=== PATIENT | female | born 1970 | race African-American/Black ===

== ENCOUNTER 2016-06-12 09:26 | Inpatient (IN) | payer BC ==
[2016-06-12 09:40] LABS: Basophils % (Auto) 0.3 % (0.0-1.8); Eosinophils % (Auto) 0.3 % (0.0-4.3); Hematocrit 39.7 % (30.3-42.9); Hemoglobin 13.6 gm/dl (10.1-14.3); Mean Corpuscular HGB Conc 34 % (30-34); Mean Corpuscular Hemoglobin 32 pg (28-32); Mean Corpuscular Volume 93 fl (79-97); Platelet Count 282 K/mm3 (140-440); Red Blood Count 4.28 M/mm3 (3.65-5.03); Red Cell Distribution Width 13.4 % (13.2-15.2); White Blood Count 9.4 K/mm3 (4.5-11.0)
[2016-06-12 09:47] LABS: Anion Gap 17 mmol/L; BUN/Creatinine Ratio 28.33; Blood Urea Nitrogen 17 mg/dL (7-17); Carbon Dioxide 25 mmol/L (22-30); Chloride 97.3 mmol/L (98-107); Glucose 174 mg/dL (65-100); INR 0.93 (0.87-1.13); Potassium 3.4 mmol/L (3.6-5.0); Sodium 136 mmol/L (137-145)
[2016-06-12] MEDS ORDERED: ASPIRIN PO ONE (10:31)
--- NOTE | 2016-06-12 10:36 | Emergency Department Report ---
HPI - General Chief Complaint: Neuro Symptoms/Deficit Time Seen by Provider: 06/12/16 10:19 - HPI HPI: Room 1 The patient is a 45-year-old male presenting with chief complaint of right- sided weakness. The patient's last known well time was 19:00 last night when she went to bed. The patient awakened this morning at 03:00 with weakness of her right upper and right lower extremity. The patient states that approximately 07:00 she noticed difficulty speaking secondary to her tongue feeling "funny." Patient denies headache. Patient denies any previous episodes of same Location: Right upper extremity, right lower extremities weakness Duration: Awakened at 03:00 with symptoms Quality: Weakness Severity: Moderate Modifying factors: Unknown Context: [see above] Mode of transportation: [not driving] ED Past Medical Hx - Past Medical History Hx Hypertension: Yes Additional medical history: heart trouble? - Surgical History Past Surgical History?: No Additional Surgical History: eye surgery - Family History Family history: no significant - Social History Smoking Status: Never Smoker Substance Use Type: None - Medications Home Medications: Home Medications Medication Instructions Recorded Confirmed Last Taken Type No Known Home Medications [No 06/12/16 06/12/16 Unknown History Reported Home Medications] ED Review of Systems ROS: Stated complaint: POSS STROKE Other details as noted in HPI Comment: All other systems reviewed and negative Constitutional: denies: chills, fever Eyes: denies: eye pain, eye discharge, vision change ENT: other (tongue feels funny) Respiratory: denies: cough, shortness of breath, wheezing Cardiovascular: denies: chest pain, palpitations Endocrine: no symptoms reported Gastrointestinal: nausea Genitourinary: denies: urgency, dysuria, discharge Musculoskeletal: denies: back pain, joint swelling, arthralgia Skin: denies: rash, lesions Neurological: weakness. denies: numbness Psychiatric: denies: anxiety, depression Hematological/Lymphatic: denies: easy bleeding, easy bruising Physical Exam - Physical Exam Vital Signs: Vital Signs 06/12/16 06/12/16 09:55 10:00 Temperature 98.1 F Pulse Rate 68 Respiratory 18 Rate Blood Pressure 208/93 O2 Sat by Pulse 100 99 Oximetry Physical Exam: GENERAL: The patient is well-developed well-nourished female lying on stretcher not appearing to be in acute distress. [] HEENT: Normocephalic. Atraumatic. Extraocular motions are intact. Patient has moist mucous membranes. No nystagmus noted NECK: Supple. Trachea midline CHEST/LUNGS: Clear to auscultation. There is no respiratory distress noted. HEART/CARDIOVASCULAR: Regular. There is no tachycardia. There is no gallop rub or murmur. ABDOMEN: Abdomen is soft, nontender. Patient has normal bowel sounds. There is no abdominal distention. SKIN: There is no rash. There is no edema. There is no diaphoresis. NEURO: The patient is awake, alert, and oriented. The patient is cooperative. Cranial nerves II through XII grossly intact with exception of cranial nerve XI on the right. The patient has normal speech. 3+/5 caser shoe parts on the right, 5+/5 caser shoe parts left. Patient is not able to fully raise right upper extremity. Positive right pronator drift. Patient exhibits difficulty flexing right lower extremity at the hip and the knee when compared to the left. NIHSS= 4 MUSCULOSKELETAL: There is no evidence of acute injury. ED Course Vital Signs 06/12/16 06/12/16 09:55 10:00 Temperature 98.1 F Pulse Rate 68 Respiratory 18 Rate Blood Pressure 208/93 O2 Sat by Pulse 100 99 Oximetry ED Medical Decision Making - Lab Data Result diagrams: 06/12/16 09:28 06/12/16 09:28 Laboratory Tests 06/12/16 06/12/16 06/12/16 09:28 09:28 09:28 WBC 9.4 RBC 4.28 Hgb 13.6 Hct 39.7 MCV 93 MCH 32 MCHC 34 RDW 13.4 Plt Count 282 Lymph % (Auto) 18.9 Callahan % (Auto) 2.2 Eos % (Auto) 0.3 Baso % (Auto) 0.3 Lymph # 1.8 Callahan # 0.2 Eos # 0.0 Baso # 0.0 Seg Neutrophils % 78.3 H Seg Neutrophils # 7.4 PT 12.4 INR 0.93 APTT 26.0 Thrombin Time Sodium 136 L Potassium 3.4 L Chloride 97.3 L Carbon Dioxide 25 Anion Gap 17 BUN 17 Creatinine 0.6 L Estimated GFR > 60 BUN/Creatinine Ratio 28.33 Glucose 174 H Calcium 9.0 Troponin T < 0.010 06/12/16 09:28 WBC RBC Hgb Hct MCV MCH MCHC RDW Plt Count Lymph % (Auto) Callahan % (Auto) Eos % (Auto) Baso % (Auto) Lymph # Callahan # Eos # Baso # Seg Neutrophils % Seg Neutrophils # PT INR APTT Thrombin Time 15.4 Sodium Potassium Chloride Carbon Dioxide Anion Gap BUN Creatinine Estimated GFR BUN/Creatinine Ratio Glucose Calcium Troponin T - EKG Data -: EKG Interpreted by Me EKG shows normal: sinus rhythm Rate: normal - EKG Data When compared to previous EKG there are: previous EKG unavailable Interpretation: other (biphasic T waves in leads V5, V6) - Radiology Data Radiology results: report reviewed (CT head), image reviewed (CT head) CT head (discussed with teleneurologist/verbal report called by radiologist)- no acute hemorrhage. Questionable lacunar infarct - Differential Diagnosis CVA, TIA, ICH Critical care attestation.: If time is entered above; I have spent that time in minutes in the direct care of this critically ill patient, excluding procedure time. ED Disposition Clinical Impression: CVA (cerebral vascular accident) Disposition: OP ADMITTED IP TO THIS HOSP Is pt being admited?: Yes Does the pt Need Aspirin: Yes Condition: Serious Time of Disposition: 10:39 (hospitalist paged)
[2016-06-12] MEDS ORDERED: SODIUM CHLORIDE FLUSH SYRINGE 10 ML IV PRN (11:00)
--- NOTE | 2016-06-12 11:02 | Cat Scan Report ---
CT HEAD WITHOUT CONTRAST HISTORY: CVA. TECHNIQUE: Sequential noncontrast CT images. FINDINGS: No comparison. There is no evidence for hemorrhage, mass, extra-axial fluid collection or hydrocephalus. A 1 cm hypodensity is noted in the left anterior basal ganglia on image 28. This has the appearance of a focal chronic ischemic insult. The remainder of the brain parenchyma has normal attenuation. Normal lynn-white interface. The posterior fossa and contents are unremarkable. The calvarium, visualized sinuses and mastoid air cells are within normal limits. IMPRESSION: No acute intracranial process is appreciated. Questionable low 1 cm hypodensity in the left anterior basal ganglia which appears chronic in my opinion. Please correlate with the patient's clinical presentation. These findings were discussed with Dr. Segundo in the emergency department at 0941 hours
[2016-06-12 11:35] LABS: INR 0.97 (0.87-1.13)
--- NOTE | 2016-06-12 12:05 | Admit Criteria Form ---
Admission Criteria Documentation: STROKE: ISCHEMIC Clinical Indications for Admission to Inpatient Care (Place 'X' for any and all applicable criteria): Admission is indicated for ANY ONE of the following(1)(2)(3)(4): [ X]I. Acute stroke Extended stay beyond goal length of stay may be needed for(1)(2) [ ]a) Major deficit or clinical deterioration [ ]b) Hospital-acquired infection (eg, urinary tract infection, pneumonia) [ ]c) Embolic cause of stroke [ ]d) Venous thromboembolism(9) [ ]e) Seizures [ ]f) Bleeding (eg, cerebral) [ ]g) Increased intracranial pressure [ ]h) Comorbidities [ ]i) Surgical intervention The original [email or web address] content created by [employer] has been revised. The portions of the content which have been revised are identified through the use of italic text or in bold, and [facility] has neither reviewed nor approved the modified material. All other unmodified content is copyright [facility]. Please see references footnoted in the original [facility] edition 2016 Admission Criteria Met: Yes
--- NOTE | 2016-06-12 14:22 | Magnetic Resonance Report ---
MRI OF THE BRAIN WITHOUT CONTRAST: HISTORY: CVA PROCEDURE: Multiplanar, multisequence MR imaging of the brain without IV contrast was performed. FINDINGS: A 1.1 cm focus of diffusion restriction is identified in the left rohit on diffusion image 13. No additional areas of diffusion restriction. No evidence for hemorrhage or mass. No extra axial fluid collection. Chronic lacunar infarct measuring 1 cm is noted in the left basal ganglia. No additional chronic infarct. The midline structures are central. The basal cisterns are patent. Normal ventricular size. The orbital cavities and sella turcica demonstrate no abnormality. The visualized paranasal sinuses and mastoid air cells are well aerated. IMPRESSION: 1.1 cm acute to subacute lacunar infarct in the left rohit. No evidence for hemorrhage.
--- NOTE | 2016-06-12 14:26 | Magnetic Resonance Report ---
MRA HEAD WITHOUT CONTRAST HISTORY: CVA. [id number] imaging with MIP reformations of the [place] of [place] is submitted. The anterior and posterior circulations are patent. There appears to be moderate irregularity or atherosclerotic disease involving the proximal bilateral anterior and middle cerebral arteries. The left MCA is most affected. No large vessel occlusion or aneurysm is identified. This appears advanced for this patient's age. Small bilateral posterior communicating arteries are noted. The vertebral arteries and basilar artery are widely patent. IMPRESSION: No large vessel occlusion or aneurysm. Moderate atherosclerotic disease for this patient's age.
[2016-06-12] MEDS: LOVENOX SUB-Q SCH (15:00)
[2016-06-12] MEDS: ASPIRIN PO SCH (16:11)
[2016-06-12] MEDS ORDERED: ZESTRIL ONE (16:15)
[2016-06-12] MEDS: ZESTRIL PO SCH ×3 (16:21→21:15)
[2016-06-12] MEDS ORDERED: PNEUMOVAX 23 IM ONE (17:13)
[2016-06-12] MEDS ORDERED: FLUARIX QUAD 2016-2017(36 MOS+) IM ONE (17:13)
--- NOTE | 2016-06-12 18:43 | Echocardiography Report ---
Transthoracic Echocardiogram Indication: Stroke BP: 208/93 Findings Left Ventricle: The left ventricular chamber size is normal. Mild to moderate concentric left ventricular hypertrophy is observed. Global left ventricular systolic function is at the lower limits of normal. The estimated ejection fraction is 45-50%. Abnormal left ventricular diastolic filling is observed, consistent with impaired relaxation. Left Atrium: The left atrial chamber size is normal. Right Ventricle: The right ventricular cavity size is normal. The right ventricular global systolic function is normal. Right Atrium: The right atrial cavity size is normal. The interatrial septum appears normal. Aortic Valve: The aortic valve is trileaflet. The aortic valve leaflets are mildly thickened. Mild aortic leaflet calcification is visualized. There is mild aortic regurgitation. There is no evidence of aortic stenosis. Mitral Valve: The mitral valve leaflets are mildly thickened. There is mild mitral regurgitation. There is no evidence of mitral stenosis. Tricuspid Valve: The tricuspid valve leaflets are normal. There is mild tricuspid regurgitation. The right ventricular systolic pressure is calculated at 27 mmHg. There is evidence of borderline pulmonary hypertension. There is no tricuspid stenosis. Pulmonic Valve: The pulmonic valve appears normal. There is trace pulmonic regurgitation. There is no pulmonic stenosis. Pericardium: There is no pericardial effusion. Aorta: There is no dilatation of the ascending aorta. There is no dilatation of the aortic root. Venous: The inferior vena cava appears normal in size. Contrast: Intravenous agitated saline contrast was used to assess intracardiac shunting. Measurements Chambers MM Name Value Normal Range Ao root diameter (MM) 3 cm (2 - 3.7) LA dimension (AP) MM 3.7 cm (1.9 - 4) LA:Ao ratio (MM) 1.23 ratio - AV cusp separation (MM) 1.6 cm (1.5 - 2.6) Chambers 2D Name Value Normal Range RVIDd (AP) 2D 3.08 cm (0.9 - 2.6) IVSd (2D) 1.21 cm (0.6 - 1.1) LVPWd (2D) 1.21 cm (0.6 - 1.1) IVS:LVPW ratio (2D) 1 ratio - LVIDd (2D) 4.84 cm (3.7 - 5.6) LVIDs (2D) 3.33 cm (2 - 3.8) LV FS (Teichholz) (2D) 31.2 % - LV FS (cube) (2D) 31.2 % - LA dimension (AP) 2D 3.6 cm (1.9 - 4) Volumes/Mass Name Value Normal Range LA ESV SP 4CH (MOD) 35 ml - LA ESV SP 2CH (MOD) 35 ml - LA ESV BP (MOD) 36 ml - LA ESV BP (MOD) index 21.4 ml/m2 - Diastolic/Systolic Function Name Value Normal Range MV E-wave Vmax 0.65 m/sec - MV deceleration time 250 msec - MV A-wave Vmax 1.08 m/sec - MV E:A ratio 0.6 ratio - LV septal e' Vmax 0.05 m/sec - LV lateral e' Vmax 0.07 m/sec - LV E:e' septal ratio 13.1 ratio - LV E:e' lateral ratio 9.7 ratio - Aortic Valve Name Value Normal Range AV VTI 41.9 cm - AV mean gradient 9 mmHg - LVOT diameter 2.1 cm - LVOT VTI 25.6 cm - LVOT mean gradient 4 mmHg - SV LVOT 89 ml - JAYNE (continuity VTI) 2.11 cm2 - Mitral Valve Name Value Normal Range MV PHT 49 msec - MR Vmax 4.78 m/sec - MVA (PHT) 4.49 cm2 - Tricuspid Valve Name Value Normal Range TR Vmax 2.47 m/sec - TR peak gradient 24 mmHg - RAP 3 mmHg - RVSP 27 mmHg - Pulmonic Valve/Qp:Qs Name Value Normal Range PV Vmax 1.08 m/sec - PV peak gradient 5 mmHg - CA end-diastolic Vmax 0.98 m/sec - PV acceleration time 130 msec -
--- NOTE | 2016-06-12 20:42 | History and Physical Report ---
History of Present Illness Date of examination: 06/12/16 Date of admission: 06/12/16 11:05 Chief complaint: Weakness right upper and lower extremities one day duration History of present illness: Patient is a 45-year-old lady who speaks very little Tristanian went to bed in her normal state of health about 10 pm last night. Woke up this morning at about 6 AM to find that she is unable to raise right arm or right leg. Also noticed a slurred speech. EMS was called in. Patient was brought to the emergency department. Blood pressure was found to be severely elevated. The patient had a slow speech and obvious right hemiparesis. CT scan of the brain was unremarkable. MRI MRA was ordered. Admission was requested. Past History Past Medical History: hypertension Medications and Allergies Allergies Allergy/AdvReac Type Severity Reaction Status Date / Time No Known Allergies Allergy Unverified 06/12/16 09:32 Home Medications Medication Instructions Recorded Confirmed Last Taken Type No Known Home Medications [No 06/12/16 06/12/16 Unknown History Reported Home Medications] Active Meds: Active Medications Aspirin (Aspirin) 325 mg PO QDAY [facility] Last Admin: 06/12/16 16:11 Dose: Not Given Enoxaparin Sodium (Lovenox) 40 mg SUB-Q QDAY [facility] Last Admin: 06/12/16 15:00 Dose: Not Given Sodium Chloride (Nacl 0.9% 1000 Ml) 1,000 mls @ 100 mls/hr IV DIRECT [facility] Lisinopril (Zestril) 40 mg PO QDAY [facility] Last Admin: 06/12/16 17:16 Dose: Not Given Simvastatin (Zocor) 20 mg PO QHS [facility] Sodium Chloride (Sodium Chloride Flush Syringe 10 Ml) 10 ml IV PRN PRN PRN Reason: LINE FLUSH Review of system Constitutional: Well Nouridhed and Well developed. Head: NC/ AT Eyes: Denies any visual impairments. No discharge from the eyes Nose: Denies any rhinorrhea or epistaxis Throats: Denies any post nasal drainage. Ears: Denies any hearing deficits Cardiovascular system: Denies any chest pain, shortness of breath, orthopnea, paroxysmal nocturnal dyspnea, or palpitation. Respiratory system: Denies any cough, difficulty breathing, wheezing, pleuritic chest pain, Gastrointestinal system: Denies any abdominal pain, nausea vomiting, hematemesis or melena. Neurological system: Denies any headache, has slurred speech, facial droop, right lateralizing weakness Genitalia system: Denies any dysuria, urinary frequency or urgency, urethral discharge Skin: No rashes, hyperpigmented spots. Hematological: Denies any cervical tenderness hemorrhages or petechia. Immunological: Denies any multiple septic spots, Lymphatic: Denies any generalized lymphadenopathy. Endocrine: Denies any polyuria, polydipsia, polyphagia. No heat or cold intolerance. Exam - Constitutional Vitals: Temp Pulse Resp BP Pulse Ox 98.4 F 64 18 188/91 98 06/12/16 17:46 06/12/16 17:46 06/12/16 17:46 06/12/16 17:46 06/12/16 12:00 General appearance: Present: no acute distress, well-nourished - EENT Eyes: Present: PERRL ENT: hearing intact, clear oral mucosa - Neck Neck: Present: supple, normal ROM - Respiratory Respiratory effort: normal Respiratory: bilateral: CTA - Cardiovascular Heart Sounds: Present: S1 & S2. Absent: rub, click - Extremities Extremities: pulses symmetrical, No edema Peripheral Pulses: within normal limits - Abdominal General gastrointestinal: Present: soft, non-tender, non-distended, normal bowel sounds Female genitourinary: Present: normal - Integumentary Integumentary: Present: clear, warm, dry - Musculoskeletal Musculoskeletal: gait normal, strength equal bilaterally - Psychiatric Psychiatric: appropriate mood/affect, intact judgment & insight - Neurologic Neurologic: CNII-XII intact, focal deficits (strengths the right upper extremity 2-3/5, right lower extremity 3-4/5. ) Results - Labs CBC & Chem 7: 06/12/16 09:28 06/12/16 09:28 Assessment and Plan Assessment 1. Acute ischemic stroke 2. Accelerated hypertension 3. Hyperglycemia 4. Obesity Plan Patient admitted to telemetry. Aspirin 325 daily was given and Lovenox 40 mg subcutaneous commenced. Neuro check every 2 hours, echocardiogram, MRI MRA of the brain and neck. Simvastatin 20 mg daily, PT OT ST for evaluation and treatment DVT prophylaxis patient already on Lovenox and GI prophylaxis with Pepcid Spent 30 minutes in bed in patient's care, review of laboratory and radiological data, explanation of management plan to the patient and family members in the room.
[2016-06-12] MEDS: NOVOLOG SUB-Q SCH (22:17)
[2016-06-12] MEDS ORDERED: D50W (25GM) IV PRN (23:53)
[2016-06-13] MEDS: ZOCOR PO SCH ×2 (04:15→21:57)
[2016-06-13] MEDS: NOVOLOG SUB-Q SCH ×6 (04:18→22:00)
[2016-06-13] MEDS: ASPIRIN PO SCH (11:00)
[2016-06-13] MEDS: ZESTRIL PO SCH (11:00)
[2016-06-13] MEDS: K-DUR PO SCH (11:00)
[2016-06-13] MEDS: LOVENOX SUB-Q SCH (11:00)
--- NOTE | 2016-06-13 14:39 | Vascular Lab Report ---
CAROTID DUPLEX STUDY: RIGHT PSVEDV CCA PROX:788 CCA DIST:6014 ICA PROX:4011 ICA MID:7323 ICA DIST:9326 ECA: 123 VERT: 41 11 LEFT PSVEDV CCA PROX:599 CCA DIST:7114 ICA PROX:3810 ICA MID:7828 ICA DIST:8126 ECA: 112 VERT: 37 12 REASON FOR EXAM: Stroke. COMMENTS ON THE RIGHT: Doppler frequency analysis is consistent with 16 to 49 percent diameter reduction of the internal carotid artery. Minimal amount of plaque is seen. The common carotid artery is patent. The external carotid artery is patent. The vertebral artery has antegrade flow. COMMENTS ON THE LEFT: Doppler frequency analysis is consistent with 16 to 49 percent diameter reduction of the internal carotid artery. Minimal amount of plaque is seen. The common carotid artery is patent. The external carotid artery is patent. The vertebral artery has antegrade flow. Bilateral internal carotid tortuosity is noted. IMPRESSION: Less than 50% diameter reduction in the internal carotid arteries bilaterally. Consider repeat carotid artery duplex in 12 months.
--- NOTE | 2016-06-13 14:54 | Progress Note ---
Assessment and Plan Assessment and plan: 1. Acute lacunar infarct in the Left rohit with RT UR monoplegia / slurred speech - will f/u speech/ PT/ OT; cotn; cotn ASA; statin 2. Accelerated hypertension- allow permissive HTN for another 24 hrs then control;; prn antihypertensive for SBP >/= 160 3. MIld Hyperglycemia-will check Hb A1C; monitor accucheck 4.DVT prophylaxis-lovenox History Interval history: f/u CVA patient seen at the bedside; daughter present; speech is getting better; weakness in the Rt UE Hospitalist Physical - Constitutional Vitals: Temp Pulse Resp BP Pulse Ox 97.9 F 62 18 176/96 98 06/13/16 13:25 06/13/16 13:25 06/13/16 13:25 06/13/16 13:25 06/13/16 13:25 General appearance: Present: no acute distress, well-nourished - EENT Eyes: Present: PERRL, EOM intact. Absent: scleral icterus, conjunctival injection ENT: hearing intact, clear oral mucosa, no oropharyngeal erythema, no poor dentition - Neck Neck: Present: supple, normal ROM. Absent: enlarged thyroid, masses or JVD - Respiratory Respiratory effort: normal Respiratory: bilateral: diminished, negative: rales, rhonchi, wheezing - Cardiovascular Rhythm: regular Heart Sounds: Present: S1 & S2. Absent: gallop - Extremities Extremities: no ischemia, pulses intact, pulses symmetrical, No edema, normal temperature Peripheral Pulses: within normal limits - Abdominal General gastrointestinal: soft, non-tender, non-distended, normal bowel sounds - Integumentary Integumentary: Present: clear - Psychiatric Psychiatric: appropriate mood/affect, intact judgment & insight, cooperative - Neurologic Neurologic: focal deficits (RT UE weakness; power 3 ), other (slurred speech) Results - Labs CBC & Chem 7: 06/12/16 09:28 06/12/16 09:28 Labs: Laboratory Last Values WBC 9.4 K/mm3 (4.5-11.0) 06/12/16 09:28 RBC 4.28 M/mm3 (3.65-5.03) 06/12/16 09:28 Hgb 13.6 gm/dl (10.1-14.3) 06/12/16 09:28 Hct 39.7 % (30.3-42.9) 06/12/16 09:28 MCV 93 fl (79-97) 06/12/16 09: MCH 32 pg (28-32) 06/12/16 09:28 MCHC 34 % (30-34) 06/12/16 09:28 RDW 13.4 % (13.2-15.2) 06/12/16 09:28 Plt Count 282 K/mm3 (140-440) 06/12/16 09:28 Lymph % (Auto) 18.9 % (13.4-35.0) 06/12/16 09:28 Cocke % (Auto) 2.2 % (0.0-7.3) 06/12/16 09:28 Eos % (Auto) 0.3 % (0.0-4.3) 06/12/16 09:28 Baso % (Auto) 0.3 % (0.0-1.8) 06/12/16 09:28 Lymph # 1.8 K/mm3 (1.2-5.4) 06/12/16 09:28 Cocke # 0.2 K/mm3 (0.0-0.8) 06/12/16 09:28 Eos # 0.0 K/mm3 (0.0-0.4) 06/12/16 09:28 Baso # 0.0 K/mm3 (0.0-0.1) 06/12/16 09:28 Seg Neutrophils % 78.3 % (40.0-70.0) H 06/12/16 09:28 Seg Neutrophils # 7.4 K/mm3 (1.8-7.7) 06/12/16 09:28 PT 12.8 Sec. (12.2-14.9) 06/12/16 11:14 INR 0.97 (0.87-1.13) 06/12/16 11:14 APTT 26.0 Sec. (24.2-36.6) 06/12/16 09:28 Thrombin Time 15.4 Sec. (15.1-19.6) 06/12/16 09:28 Sodium 136 mmol/L (137-145) L 06/12/16 09:28 Potassium 3.4 mmol/L (3.6-5.0) L 06/12/16 09:28 Chloride 97.3 mmol/L (98-107) L 06/12/16 09:28 Carbon Dioxide 25 mmol/L (22-30) 06/12/16 09:28 Anion Gap 17 mmol/L 06/12/16 09:28 BUN 17 mg/dL (7-17) 06/12/16 09:28 Creatinine 0.6 mg/dL (0.7-1.2) L 06/12/16 09:28 Estimated GFR > 60 ml/min 06/12/16 09:28 BUN/Creatinine Ratio 28.33 % 06/12/16 09:28 Glucose 174 mg/dL (65-100) H 06/12/16 09:28 POC Glucose 154 (70-105) H 06/13/16 13:18 Calcium 9.0 mg/dL (8.4-10.2) 06/12/16 09:28 Troponin T < 0.010 ng/mL (0.00-0.029) 06/12/16 09:28 Triglycerides 91 mg/dL (2-149) 06/13/16 06:24 Cholesterol 252 mg/dL (50-199) H 06/13/16 06:24 LDL Cholesterol Direct 187 mg/dL (50-130) H 06/13/16 06:24 HDL Cholesterol 47 mg/dL (40-59) 06/13/16 06:24 Cholesterol/HDL Ratio 5.36 % 06/13/16 06:24 TSH 1.020 mlU/mL (0.270-4.200) 06/13/16 00:45 - Imaging and Cardiology MRI - head: report reviewed (MRI of the brain-1.1 cm acute Ayakov acute lacunar infarct in the left rohti. No evidence for hemorrhage)
[2016-06-13] MEDS: APRESOLINE IV PRN (20:20)
[2016-06-13] MEDS: NACL 0.9% 1000 ML 1,000 ML IV SCH (22:06)
[2016-06-14] MEDS: NOVOLOG SUB-Q SCH ×4 (02:00→22:28)
--- NOTE | 2016-06-14 15:48 | Progress Note ---
Assessment and Plan Assessment and plan: 1. Acute lacunar infarct in the Left rohit with RT UR monoplegia / slurred speech - PT eval ongoing; for hemiwalker on discharge; cotn ASA; statin 2. Accelerated hypertension-will attempt to control now 3. MIld Hyperglycemia-will check Hb A1C- 5.6; not diabetic 4. DVT prophylaxis-lovenox History Interval history: f/u CVA patient seen at the bedside; daughter present; speech is getting better; weakness in the Rt UE remains Hospitalist Physical - Constitutional Vitals: Temp Pulse Resp BP Pulse Ox 98.3 F 59 L 18 139/72 97 06/14/16 00:25 06/14/16 02:00 06/14/16 00:25 06/14/16 00:25 06/14/16 11:25 General appearance: Present: no acute distress, well-nourished - EENT Eyes: Present: PERRL, EOM intact. Absent: scleral icterus, conjunctival injection ENT: hearing intact, clear oral mucosa, no oropharyngeal erythema, no poor dentition - Neck Neck: Present: supple, normal ROM. Absent: enlarged thyroid, masses or JVD - Respiratory Respiratory effort: normal Respiratory: negative: diminished, rales, rhonchi, wheezing - Cardiovascular Rhythm: regular Heart Sounds: Present: S1 & S2. Absent: gallop - Extremities Extremities: no ischemia, pulses intact, pulses symmetrical, No edema Peripheral Pulses: within normal limits - Abdominal General gastrointestinal: soft, non-tender, non-distended, normal bowel sounds - Integumentary Integumentary: Present: clear - Psychiatric Psychiatric: appropriate mood/affect, intact judgment & insight, cooperative - Neurologic Neurologic: CNII-XII intact, moves all extremities Results - Labs CBC & Chem 7: 06/12/16 09:28 06/12/16 09:28 Labs: Laboratory Last Values WBC 9.4 K/mm3 (4.5-11.0) 06/12/16 09:28 RBC 4.28 M/mm3 (3.65-5.03) 06/12/16 09:28 Hgb 13.6 gm/dl (10.1-14.3) 06/12/16 09:28 Hct 39.7 % (30.3-42.9) 06/12/16 09:28 MCV 93 fl (79-97) 06/12/16 09:28 MCH 32 pg (28-32) 06/12/16 09:28 MCHC 34 % (30-34) 06/12/16 09:28 RDW 13.4 % (13.2-15.2) 06/12/16 09:28 Plt Count 282 K/mm3 (140-440) 06/12/16 09:28 Lymph % (Auto) 18.9 % (13.4-35.0) 06/12/16 09:28 [place] % (Auto) 2.2 % (0.0-7.3) 06/12/16 09:28 Eos % (Auto) 0.3 % (0.0-4.3) 06/12/16 09:28 Baso % (Auto) 0.3 % (0.0-1.8) 06/12/16 09:28 Lymph # 1.8 K/mm3 (1.2-5.4) 06/12/16 09:28 [place] # 0.2 K/mm3 (0.0-0.8) 06/12/16 09:28 Eos # 0.0 K/mm3 (0.0-0.4) 06/12/16 09:28 Baso # 0.0 K/mm3 (0.0-0.1) 06/12/16 09:28 Seg Neutrophils % 78.3 % (40.0-70.0) H 06/12/16 09:28 Seg Neutrophils # 7.4 K/mm3 (1.8-7.7) 06/12/16 09:28 PT 12.8 Sec. (12.2-14.9) 06/12/16 11:14 INR 0.97 (0.87-1.13) 06/12/16 11:14 APTT 26.0 Sec. (24.2-36.6) 06/12/16 09:28 Thrombin Time 15.4 Sec. (15.1-19.6) 06/12/16 09:28 Sodium 136 mmol/L (137-145) L 06/12/16 09:28 Potassium 3.4 mmol/L (3.6-5.0) L 06/12/16 09:28 Chloride 97.3 mmol/L (98-107) L 06/12/16 09:28 Carbon Dioxide 25 mmol/L (22-30) 06/12/16 09:28 Anion Gap 17 mmol/L 06/12/16 09:28 BUN 17 mg/dL (7-17) 06/12/16 09:28 Creatinine 0.6 mg/dL (0.7-1.2) L 06/12/16 09:28 Estimated GFR > 60 ml/min 06/12/16 09:28 BUN/Creatinine Ratio 28.33 % 06/12/16 09:28 Glucose 174 mg/dL (65-100) H 06/12/16 09:28 POC Glucose 97 (70-105) 06/14/16 08:26 Hemoglobin A1c 5.6 % (4-6) 06/13/16 15:20 Calcium 9.0 mg/dL (8.4-10.2) 06/12/16 09:28 Troponin T < 0.010 ng/mL (0.00-0.029) 06/12/16 09:28 Triglycerides 91 mg/dL (2-149) 06/13/16 06:24 Cholesterol 252 mg/dL (50-199) H 06/13/16 06:24 LDL Cholesterol Direct 187 mg/dL (50-130) H 06/13/16 06:24 HDL Cholesterol 47 mg/dL (40-59) 06/13/16 06:24 Cholesterol/HDL Ratio 5.36 % 06/13/16 06:24 TSH 1.020 mlU/mL (0.270-4.200) 06/13/16 00:45
[2016-06-14] MEDS: K-DUR PO SCH (15:51)
[2016-06-14] MEDS: LOVENOX SUB-Q SCH (15:51)
[2016-06-14] MEDS: ASPIRIN PO SCH (15:51)
[2016-06-14] MEDS: NACL 0.9% 1000 ML 1,000 ML IV SCH (20:58)
[2016-06-14] MEDS: ZOCOR PO SCH (21:00)
[2016-06-14] MEDS: APRESOLINE IV PRN (22:29)
[2016-06-15] MEDS: NOVOLOG SUB-Q SCH ×2 (06:32→10:00)
[2016-06-15] MEDS: APRESOLINE IV PRN (10:23)
[2016-06-15] MEDS: ASPIRIN PO SCH (10:24)
[2016-06-15] MEDS: K-DUR PO SCH (10:24)
[2016-06-15] MEDS: LOVENOX SUB-Q SCH (10:24)
--- NOTE | 2016-06-15 10:54 | Discharge Summary ---
Providers - Providers Date of Admission: 06/12/16 11:05 Date of discharge: 06/15/16 Attending physician: JEZ ALICEA Primary care physician: ENVIRONMENTAL CONSTRUCTION ENGINEER Hospitalization Reason for admission: acute CVA Condition: Serious Pertinent studies: CAROTID DUPLEX COMPLETED. VAS LAB PRELIMINARY REPORT; <50% STENOSIS BLAT BY DOPPLER VELOCITIES. BILAT ANTEG VERT FLOWS. PHYSICIANS REPORT TO FOLLOW...(RSK) Initialized on 06/12/16 12:12 - END OF NOTE Procedures: Echocardiogram-ejection fraction 45-50%. Abnormal left ventricular diastolic filling. Moderate concentric LVH MRI - head: report reviewed (MRI of the brain-1.1 cm acute Yaakov acute lacunar infarct in the left rohit. No evidence for hemorrhage) Hospital course: Miss URBINA is a 45 yo F who presented to the ER with weakness to the Right upper extremity and MRI confirmed acute CVA ; she had routine stroke work up and was accepted to acute rehab for physical therapy. condition at discharge -stable 31 minuites spent preparing discharge Disposition: DC/TX INPT REHAB FACILITY - Discharge Diagnoses (1) Monoplegia of right lower extremity Status: Acute (2) CVA (cerebral vascular accident) Status: Acute Qualifiers: CVA mechanism: C Precerebral and cerebral artery: P Laterality of affected vessel: L Core Measure Documentation - Palliative Care Palliative Care/ Comfort Measures: Not Applicable - Core Measures Any of the following diagnoses?: stroke - Stroke Discharge Requirements Statin for LDL = or >70 mg/dl on DC: Yes Anticoag for atrial fib/atrial flutter: No Reason for no anticoag for AF/F on DC: Not Indicated Antithrombotic for ischemic stroke: Yes Exam - Constitutional Vitals: Temp Pulse Resp BP Pulse Ox 98.4 F 68 20 178/88 99 06/15/16 07:30 06/15/16 07:30 06/15/16 07:30 06/15/16 07:30 06/15/16 08:53 General appearance: Present: no acute distress - EENT Eyes: Present: PERRL, EOM intact. Absent: scleral icterus, conjunctival injection ENT: hearing intact, clear oral mucosa, no oropharyngeal erythema, no poor dentition - Neck Neck: Present: supple, normal ROM. Absent: enlarged thyroid, masses or JVD - Respiratory Respiratory effort: normal Respiratory: negative: diminished, rales, rhonchi, wheezing - Cardiovascular Rhythm: regular Heart Sounds: Present: S1 & S2. Absent: gallop - Extremities Extremities: no ischemia, pulses intact, pulses symmetrical, No edema Peripheral Pulses: within normal limits - Abdominal General gastrointestinal: Present: soft, non-tender, non-distended, normal bowel sounds Female genitourinary: Present: deferred - Rectal Rectal Exam: deferred - Integumentary Integumentary: Present: clear - Musculoskeletal Musculoskeletal: right sided weakness (RT upper extremity) - Psychiatric Psychiatric: appropriate mood/affect - Neurologic Neurologic: focal deficits (RT upper extremity) Plan Activity: advance as tolerated Weight Bearing Status: Weight Bear as Tolerated Diet: low cholesterol, low salt Follow up with: PRIMARY CARE, [Primary Care Provider] - 3-5 Days Forms: Work/School Release Form(ED)
[2016-06-15] MEDS ORDERED: TOPROL XL PO SCH (13:00)
[2016-06-15] MEDS ORDERED: NORVASC PO SCH (13:00)
[2016-06-15 13:10] VITALS: BP 205/92
== END 2016-06-15 13:50 | DRG 66 ==
LOC: ED 09:26 → 4A 11:05
PROVIDERS: ADMIT Family Medicine; ATTEND Hospitalist
DX: I63.9 Cerebral infarction, unspecified (principal); G83.11 Monoplegia of lower limb affecting right dominant side; I10 Essential (primary) hypertension; R73.9 Hyperglycemia, unspecified; E66.9 Obesity, unspecified; Z68.29 Body mass index [BMI] 29.0-29.9, adult; Z98.890 Other specified postprocedural states
CPT/HCPCS: 36415; 70450; 70544; 70551; 80048; 80061; 82962; 83036; 84443; 84484; 85025; 85610; 85670; 85730; 90686; 90732; 93005; 93010; 93306; 93880; G8978-GP; G8979-GP; J0360; J1650; J1815; J7030

== ENCOUNTER 2016-06-15 14:31 | Inpatient (IN) | payer BC ==
[2016-06-15] MEDS ORDERED: SENOKOT PO PRN (14:57)
[2016-06-15] MEDS ORDERED: DULCOLAX PR PRN (14:57)
[2016-06-15] MEDS ORDERED: ALUM-MAG HYDROX-SIMETH 200-200-20MG/5ML PO PRN (14:57)
[2016-06-15] MEDS ORDERED: APRESOLINE PO PRN (15:01)
--- NOTE | 2016-06-15 16:21 | History and Physical Report ---
History of Present Illness Date: 06/15/16 Referring Facility: [facility] Date of admission: 06/15/16 14:31 Chief Complaint: Left pontine infarct History of present illness: POST ADMISSION PHYSICIAN EVALUATION ONSET DATE: 06/12/2016 IMPAIRMENT GROUP CODE: 01.2 ETIOLOGIC DIAGNOSIS: left pontine infarct STATUS CHANGES SINCE PREADMISSION SCREENING: PAS has been reviewed. In comparison, pt's blood pressure noted to be severely elevated on today (205/92) ; however, restarted on oral medications. Will need ongoing management of HTN during course. Pt continues with right sided weakness; remains an appropriate candidate for IRU admission. PREVIOUS FUNCTIONAL STATUS: Independent with ADLs, gait, transfers CURRENT FUNCTIONAL STATUS: modA for bed mobility and transfers; ambulating 50 feet x2 with modA HPI 45 y.o. female admitted with acute onset of right sided weakness and dysarthria. BP noted to be 208/93 in the ED. Work-up revealed acute-subacute infarct in the left rohit; less than 50% reduction in internal carotid arteries bilaterally. Pt has continued with right sided weakness and dysarthria; noted to have decline in functional independence during therapy evaluations. Pt also with ongoing uncontrolled blood pressure (BP ranging 135-205/67-101). Pt is now admitted for aggressive therapies and ongoing medical management. History is per family and chart review due to language barrier. Past History Past Medical History: hypertension Past Surgical History: Other (eye surgery) Social history: denies: smoking, alcohol abuse Family history: hypertension, stroke Medications and Allergies Allergies Allergy/AdvReac Type Severity Reaction Status Date / Time No Known Allergies Allergy Unverified 06/12/16 09:32 Home Medications Medication Instructions Recorded Confirmed Last Taken Type Aspirin [Aspirin TAB] 325 mg PO QDAY tablet 06/15/16 Unknown Rx Metoprolol [Lopressor TAB] 75 mg PO BID #60 tablet 06/15/16 Unknown Rx Simvastatin [Zocor TAB] 20 mg PO QHS tablet 06/15/16 Unknown Rx amLODIPine [Norvasc] 10 mg PO DAILY #30 tab 06/15/16 Unknown Rx Active Meds: Active Medications Acetaminophen (Tylenol) 650 mg PO Q4H PRN PRN Reason: Pain MILD(1-3)/Fever >100.5/BENITEZ Al Hydrox/Mg Hydrox/Simethicone (Alum-Mag Hydrox-Simeth 208-261-71lk/5ml) 30 ml PO Q4H PRN PRN Reason: Indigestion Amlodipine Besylate (Norvasc) 10 mg PO QDAY [facility] Aspirin (Aspirin) 325 mg PO QDAY [facility] Bisacodyl (Dulcolax) 10 mg [place] QDAY PRN PRN Reason: Constipation unrelieved by MOM Enoxaparin Sodium (Lovenox) 40 mg SUB-Q QDAY [facility] Hydralazine HCl (Apresoline) 10 mg PO Q6H PRN PRN Reason: Hypertension Metoprolol Succinate (Toprol Xl) 75 mg PO QDAY [facility] Senna (Senokot) 8.6 mg PO Q12H PRN PRN Reason: Laxative Effect Simvastatin (Zocor) 20 mg PO QHS [facility] Review of Systems All systems: negative Ears, nose, mouth and throat: no headache Cardiovascular: no chest pain, no lightheadedness Respiratory: no cough, no shortness of breath Gastrointestinal: no nausea, no vomiting, no constipation (BM on yesterday) Neurological: weakness (right extremities), gait dysfunction Exam - Constitutional General appearance: no acute distress, other (sitting up in chair) - EENT Eyes: EOM intact ENT: hearing intact - Neck Neck: supple, normal ROM - Respiratory Respiratory effort: normal Respiratory: bilateral: CTA - Cardiovascular Rhythm: regular Heart Sounds: Present: S1 & S2 - Extremities Extremities: No edema - Gastrointestinal General gastrointestinal: Present: soft, non-tender, non-distended, normal bowel sounds - Integumentary Integumentary: Present: clear - Musculoskeletal Musculoskeletal: right sided weakness (2/5; except 05 grinding machine operator portable and 0/5 ankle DF) - Neurologic Neurologic: CNII-XII intact, other (sensation grossly intact) - Psychiatric Psychiatric: appropriate mood/affect, cooperative, other (cannot accurate access memory due to language barrier; per family, intact) Assessment and Plan Assessment and plan: 45 y.o. right handed female s/p left pontine infarct with ongoing right sided weakness and gait dysfunction; uncontrolled blood pressure. The patient is medically stable, however, requires ongoing medical management. Pt is appropriate for inpatient rehabilitation admission and is thought to be able to tolerate at least 3 hours of therapy a day, 5 days a week including 1 hour of physical therapy, 1 hour of occupational therapy, and 1 hour of speech therapy. Patient is able to understand and follow basic directions and has attainable rehab goals. Potential barriers/complications include extension/recurrent CVA, falls, aspiration, DVT, PE, depression, parasthesias. Plan 1. Rehabilitation- Pt will undergo multidisciplinary/integrative rehab PT/OT/ LEATHERSMITH, Nursing. Areas to be addressed include, but are not limited to PT for mobility, strengthening, transfer training, ROM, endurance, stairs, balance; OT for ADLs, household tasks, adaptive equipment; LEATHERSMITH for dysarthria; Nursing for carryover of therapies, pain control, education, skin integrity, medication management, bowel/bladder management; Nutrition as needed; environmental services assistant for discharge planning and equipment needs. Potential interventions include appropriate assistive device or adaptive equipment; will likely require an AFO prior to discharge due to noted right foot drop. Expected overall level of functional improvement by discharge is Danielle for gait, transfers, and ADLs. Pt will tentatively be discharged home with outpatient PT/OT. Estimated length of stay is 10-14 days. 2. s/p CVA- continue ASA and statin; PT/OT/LEATHERSMITH to address functional deficits with self cares and mobility; dysarthria 3. HTN- pt restarted on BP meds on today; will continue to follow closely and adjust as needed 4. DVT px- lovenox - Patient Problems (1) Left pontine cerebrovascular accident Current Visit: Yes Status: Acute (2) Hemiparesis affecting right side as late effect of cerebrovascular accident Current Visit: Yes Status: Acute (3) Abnormality of gait following cerebrovascular accident (CVA) Current Visit: Yes Status: Acute (4) Right foot drop Current Visit: Yes Status: Acute (5) HTN (hypertension) Current Visit: Yes Status: Chronic Qualifiers: Hypertension type: essential hypertension Qualified Code(s): I10 - Essential (primary) hypertension
[2016-06-15] MEDS: ZOCOR PO SCH (21:15)
[2016-06-15] MEDS: TYLENOL PO PRN (22:34)
[2016-06-16 04:52] LABS: Basophils % (Auto) 0.8 % (0.0-1.8); Eosinophils % (Auto) 2.8 % (0.0-4.3); Hemoglobin 13.1 gm/dl (10.1-14.3); White Blood Count 8.1 K/mm3 (4.5-11.0)
[2016-06-16 05:03] LABS: Alanine Aminotransferase 21 units/L (7-56); Albumin 4.1 g/dL (3.9-5); Albumin/Globulin Ratio 1.4 %; Alkaline Phosphatase 48 units/L (35-129); BUN/Creatinine Ratio 21.66; Bilirubin,Total 0.5 mg/dL (0.1-1.2); Blood Urea Nitrogen 13 mg/dL (7-17); Carbon Dioxide 24 mmol/L (22-30); Chloride 101.8 mmol/L (98-107); Glucose 109 mg/dL (65-100); Potassium 3.8 mmol/L (3.6-5.0); Sodium 137 mmol/L (137-145); Total Protein 7.1 g/dL (6.3-8.2)
[2016-06-16 05:04] LABS: Anion Gap 15 mmol/L
[2016-06-16 05:29] LABS: Hematocrit 36.5 % (30.3-42.9); Mean Corpuscular HGB Conc 35 % (30-34); Mean Corpuscular Hemoglobin 32 pg (28-32); Mean Corpuscular Volume 93 fl (79-97); Platelet Count 293 K/mm3 (140-440); Red Blood Count 3.94 M/mm3 (3.65-5.03); Red Cell Distribution Width 13.2 % (13.2-15.2)
[2016-06-16] MEDS: LOVENOX SUB-Q SCH (09:57)
[2016-06-16] MEDS: NORVASC PO SCH (09:58)
[2016-06-16] MEDS: ASPIRIN PO SCH (09:58)
[2016-06-16] MEDS: TOPROL XL PO SCH (09:58)
--- NOTE | 2016-06-16 12:49 | Progress Note ---
Assessment and Plan 45 y.o. right handed female s/p left pontine infarct with ongoing right hemiparesis, dysarthria and gait dysfunction - s/p CVA- ASA, statin - gait dysfunction secondary to CVA- PT/OT for balance, strengthening, gait training, ROM - right foot drop- will follow and order AFO at discharge if needed - HTN- improved blood pressure overnight; continue to follow and adjust meds as needed - DVT px- lovenox - Patient Problems (1) Left pontine cerebrovascular accident Current Visit: Yes Status: Acute (2) Hemiparesis affecting right side as late effect of cerebrovascular accident Current Visit: Yes Status: Acute (3) Abnormality of gait following cerebrovascular accident (CVA) Current Visit: Yes Status: Acute (4) Right foot drop Current Visit: Yes Status: Acute (5) HTN (hypertension) Current Visit: Yes Status: Chronic Qualifiers: Hypertension type: essential hypertension Qualified Code(s): I10 - Essential (primary) hypertension Subjective Date of service: 06/16/16 Principal diagnosis: left pontine infarct Interval history: Pt seen in OT gym this AM, F/U IPR course, s/p left pontine infarct. Pt reports right shoulder pain on today; discussed using moist heat following OT session Objective - Constitutional General appearance: Present: no acute distress, other (mother present) - EENT Eyes: EOM intact ENT: hearing intact - Neck Neck: supple, normal ROM - Respiratory Respiratory effort: normal Respiratory: bilateral: CTA - Cardiovascular Rhythm: regular Heart Sounds: Present: S1 & S2 Extremities: No edema - Gastrointestinal General gastrointestinal: Present: soft, non-tender, non-distended, normal bowel sounds - Integumentary Integumentary: clear - Musculoskeletal Musculoskeletal: right sided weakness - Neurologic Neurologic: CNII-XII intact - Psychiatric Psychiatric: appropriate mood/affect, cooperative - Labs CBC & Chem 7: 06/16/16 04:29 06/16/16 04:29 Labs: Abnormal lab results 06/16/16 06/16/16 Range/Units 04:29 04:29 MCHC 35 H (30-34) % [place] % (Auto) 7.5 H (0.0-7.3) % Creatinine 0.6 L (0.7-1.2) mg/dL Glucose 109 H (65-100) mg/dL
[2016-06-16] MEDS: TYLENOL PO PRN (21:47)
[2016-06-16] MEDS: ZOCOR PO SCH (21:48)
--- NOTE | 2016-06-17 08:48 | Progress Note ---
Assessment and Plan 45 y.o. right handed female s/p left pontine infarct with ongoing right hemiparesis, dysarthria and gait dysfunction - s/p CVA- ASA, statin - gait dysfunction secondary to CVA, right foot drop- CGA for stairs; will likely require AFO - HTN- stable at present - DVT px- lovenox - Patient Problems (1) Left pontine cerebrovascular accident Current Visit: Yes Status: Acute (2) Hemiparesis affecting right side as late effect of cerebrovascular accident Current Visit: Yes Status: Acute (3) Abnormality of gait following cerebrovascular accident (CVA) Current Visit: Yes Status: Acute (4) Right foot drop Current Visit: Yes Status: Acute (5) HTN (hypertension) Current Visit: Yes Status: Chronic Qualifiers: Hypertension type: essential hypertension Qualified Code(s): I10 - Essential (primary) hypertension Subjective Date of service: 06/17/16 Principal diagnosis: left pontine infarct Interval history: Pt seen this AM, F/U IPR course, s/p left pontine infarct. No complaints this AM; no acute events overnight Objective - Constitutional Vitals: Vital Signs - 12hr 06/16/16 21:00 Temperature 98.0 F Pulse Rate [ 58 L Apical] Respiratory 18 Rate Blood Pressure 151/72 [Left Arm] O2 Sat by Pulse 96 Oximetry General appearance: Present: no acute distress, other (in WC) - EENT Eyes: EOM intact ENT: hearing intact - Neck Neck: supple, normal ROM - Respiratory Respiratory effort: normal Respiratory: bilateral: CTA - Cardiovascular Rhythm: regular Heart Sounds: Present: S1 & S2 Extremities: No edema - Gastrointestinal General gastrointestinal: Present: soft, non-tender, non-distended, normal bowel sounds - Integumentary Integumentary: clear - Musculoskeletal Musculoskeletal: right sided weakness (ongoing foot drop; 2/5 ) - Psychiatric Psychiatric: appropriate mood/affect, cooperative - Allied health notes Allied health notes reviewed: PT (supervision for bed mobility; CGA for stairs) - Labs CBC & Chem 7: 06/16/16 04:29 06/16/16 04:29
[2016-06-17] MEDS: LOVENOX SUB-Q SCH (08:51)
[2016-06-17] MEDS: TOPROL XL PO SCH (08:52)
[2016-06-17] MEDS: ASPIRIN PO SCH (08:52)
[2016-06-17] MEDS: NORVASC PO SCH (08:52)
--- NOTE | 2016-06-17 12:38 | IRU Plan of Care ---
Interdisciplinary Plan of Care - IP IRU INTERDISCIPLINARY PLAN: [facility] Inpatient Rehab Unit Plan of Care IRU Interdisciplinary Care Plan Start: 06/15/16 14: 51 Freq: Admission then PRN Status: Active Document 06/17/16 12:18 DB (Rec: 06/17/16 12:22 DB [id number]) Interdisciplinary Problem List Interdisciplinary Problem List Interdisciplinary Problem List Impaired Bathing/Grooming Query Text:Answers will Trigger Problems Impaired Dressing and Outcomes on Worklist. Impaired Mobility Impaired Transfers Impaired Toileting Impaired Problem Solving Impaired Memory Pain Management Knowledge Deficits Impaired Skin/Tissue Integrity Impaired Safety Medications Education IRU Interdisciplinary Care Plan Therapy Services Therapy Services Will Include: Physical Therapy Query Text:Patient will be seen for a Occupational Therapy minimum of 3 hours of daily therapy 5 Speech Therapy out of 7 days a week. Therapy intensity may be adjusted within a 7 consecutive day period to effectively serve the individual needs of the patient. Treatment Frequency/Intensity/Duration Treatment Frequency 5 days per week Treatment Intensity 1 hour per discipline daily Treatment Duration 14-21 days Problem Area: Eating/Swallowing Eating/Swallowing Outcomes Eating/Swallowing Interventions Problem Area: Bathing/Grooming Bathing/Grooming Outcomes Improve [place] w/ Grooming Improve [place] w/ Bathing Bathing/Grooming Interventions ADL Training Therapeutic Exercise Therapeutic Activity Neuromuscular Re-Education Balance Work Activity Tolerance Work Patient/Caregiver Education Problem Area: Dressing Dressing Outcomes Improve [place] w/ UB Dressing Improve [place] w/ LB Dressing Dressing Interventions ADL Training Neuromuscular Re-Education Therapeutic Exercise Balance Work Patient/Caregiver Education Problem Area: Mobility Mobility Outcomes Improve [place] w/ Bed Mobility Improve [place] w/ Ambulation Improve [place] w/ Stairs /Curb Improve [place] w/ Wheelchair Mobility Interventions Therapeutic Exercise Neuromuscular Re-Ed. Modalities Use of Assistive Devices Patient/Caregiver Education Bed Mobility Work Gait Training W/C Mobility Work Problem Area: Transfers Transfers Outcomes Improve [place] w/ Bed Transfers Improve [place] w/ Toilet Transfers Improve [place] w/ Tub/ Shower Transfers Improve [place] w/ Car Transfers Transfers Interventions Transfer Training Therapeutic Exercise Neuromuscular Re-Education Modalities Use of Assistive Devices Patient/Caregiver Education Problem Area: Bowel/Bladder Managment Bowel/Bladder Outcomes Bowel/Bladder Interventions Problem Area: Toileting Toileting Outcomes Improve [place] w/ Toileting Toileting Interventions ADL Training Balance Work Use of Assistive Devices Patient/Caregiver Education Problem Area: Nutrition Nutrition Outcomes Understand and Comply w/ Diet Nutrition Interventions Nutritional Counseling Monitor Nutrient Intake Patient/Caregiver Education Problem Area: Comprehension Comprehension Outcomes Comprehension Interventions Problem Area: Expression Expression Outcomes Expression Interventions Problem Area: Problem Solving Problem Solving Outcomes Improve Problem Solving Problem Solving Interventions Patient/Caregiver Education Problem Area: Memory Memory Outcomes Use Memory Aids Memory Interventions Cognitive Training Patient/Caregiver Education Problem Area: Pain Management Pain Management Outcomes Demonstrate/Verbalize Pain Strategies Pain Management Interventions Medication Management Use of Devices/Modalities ( TENS, hot pack, cold pack, etc .) Patient/Caregiver Education Problem Area: Knowledge Deficits Knowledge Deficits Outcomes Verbalize Precautions Verbalize Understanding of S/S of Stroke Knowledge Deficits Interventions Medication Use Education Disease Management Education Health Maintainence Education Safety Education Problem Area: Skin/Tissue Integrity Skin/Tissue Integrity Outcomes Demonstrate Understanding of Pressure Relief Skin/Tissue Integrity Interventions Pressure Relief Instruction Positioning/Turning Problem Area: Social Interaction Social Interaction Outcomes Social Interaction Interventions Problem Area: Adjustment to Disability Adjustment to Disability Outcomes Adjustment to Disability Interventions Problem Area: Discharge Concerns Discharge Concerns Outcomes Discharge w/ Necessary Equipment Have Home Health/Outpatient Services Discharge Concerns Interventions Discharge Planning Family/Caregiver Conference Family/Caregiver Training Problem Area: Community Reintegration Community Reintegration Outcomes Demonstrate Understanding of Community Resources Community Reintegration Interventions Provide Community Resources Problem Area: Home Management Home Management Outcomes Home Management Interventions Problem Area: Safety Safety Outcomes Provide Safe Environment Perform Selfcare Safely Demonstrate Good Safety w/ Transfers/Mobility Safety Interventions Identify Fall Risk [place] Pt. to Environment Reduce Environmental Hazards Neuro Check Assessment Problem Area: Medication Education Medication Education Outcomes Patient/Caregiver will Verbalize Understanding of Medications Medication Education Interventions Explain Administration/Side Effects/Interactions Problem Area: Diabetes Education Diabetes Education Outcomes Diabetes Education Interventions Problem Area: Oxygenation Oxygenation Outcomes Oxygenation Interventions Problem Area: Cardiovascular Cardiovascular Outcomes Cardiovascular Interventions Physician Only Medical Prognosis and Rehabilitation Patient demonstrates good Potential (Completed by Physician) rehab potential. Medical Prognosis: Good This plan of care has been developed based on the findings from the pre- admission assessment, post admission physician evaluation, information gathered from the assessments from all therapy disciplines and other pertinent clinicians. The plan of care has been reviewed and discussed in collaboration with the interdisciplinary team. The plan of care will be reviewed and updated at least weekly. 45 y.o. right handed female s/p left pontine infarct with ongoing right sided weakness and gait dysfunction. The patient is remains at risk for extension/ recurrent CVA, falls, aspiration, DVT, PE, depression, parasthesias. Blood pressure control has improved since admission. Will continue to adjust medications as needed. Pt is with ongoing right sided weakness and subsequent functional deficits; she is tolerating therapies to date. Pt remains an appropriate candidate for IRU admission.
[2016-06-17] MEDS: ZOCOR PO SCH (21:15)
[2016-06-18] MEDS: NORVASC PO SCH (10:04)
[2016-06-18] MEDS: LOVENOX SUB-Q SCH (10:05)
[2016-06-18] MEDS: TOPROL XL PO SCH (10:05)
[2016-06-18] MEDS: ASPIRIN PO SCH (10:05)
[2016-06-18] MEDS: ZOCOR PO SCH (21:38)
[2016-06-19] MEDS: NORVASC PO SCH (07:34)
[2016-06-19] MEDS: LOVENOX SUB-Q SCH (07:34)
[2016-06-19] MEDS: TOPROL XL PO SCH (07:35)
[2016-06-19] MEDS: ASPIRIN PO SCH (07:36)
[2016-06-19] MEDS: ZOCOR PO SCH (21:14)
[2016-06-19] MEDS: TYLENOL PO PRN (21:14)
[2016-06-20] MEDS: TYLENOL PO PRN ×2 (09:40→21:55)
[2016-06-20] MEDS: NORVASC PO SCH (09:41)
[2016-06-20] MEDS: TOPROL XL PO SCH (09:41)
[2016-06-20] MEDS: ASPIRIN PO SCH (09:41)
[2016-06-20] MEDS: LOVENOX SUB-Q SCH (09:42)
--- NOTE | 2016-06-20 11:32 | Progress Note ---
Assessment and Plan 45 y.o. right handed female s/p left pontine infarct with ongoing right hemiparesis, dysarthria and gait dysfunction - s/p CVA- ASA, statin - gait dysfunction secondary to CVA, right foot drop- ambulating up to 170 feet with small based quad cane - HTN- controlled on current regimen - DVT px- lovenox - team conference held on today- pt is S/U to SBA for ADLs except, CGA for shower transfers; Danielle for bed mobility and wheelchair mobility; supervision for gait 170 feet with SBQC; min-modA for cognition (language line used during speech therapy). Barriers- cognitive deficits, safety. Tentative d/c date set for 06/22/16. Pending family training on tomorrow. - Patient Problems (1) Left pontine cerebrovascular accident Current Visit: Yes Status: Acute (2) Hemiparesis affecting right side as late effect of cerebrovascular accident Current Visit: Yes Status: Acute (3) Abnormality of gait following cerebrovascular accident (CVA) Current Visit: Yes Status: Acute (4) Right foot drop Current Visit: Yes Status: Acute (5) HTN (hypertension) Current Visit: Yes Status: Chronic Qualifiers: Hypertension type: essential hypertension Qualified Code(s): I10 - Essential (primary) hypertension Subjective Date of service: 06/20/16 Principal diagnosis: left pontine infarct Interval history: Pt seen in [facility] this afternoon and ambulating with PT this AM, F/U IPR course, s/ p left pontine infarct. No new complaints, some improved strength in RUE; last BM on 06/18 Objective - Constitutional Vitals: Vital Signs - 12hr 06/20/16 06/20/16 07:30 09:41 Temperature 98.0 F Pulse Rate 60 Blood Pressure 150/82 General appearance: Present: no acute distress, other (mother present) - EENT Eyes: EOM intact ENT: hearing intact - Neck Neck: supple, normal ROM - Respiratory Respiratory effort: normal Respiratory: bilateral: CTA - Cardiovascular Rhythm: regular Heart Sounds: Present: S1 & S2 Extremities: No edema - Gastrointestinal General gastrointestinal: Present: soft, non-tender, non-distended, normal bowel sounds - Integumentary Integumentary: clear - Musculoskeletal Musculoskeletal: right sided weakness (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
[2016-06-20] MEDS: ZOCOR PO SCH (21:55)
[2016-06-21] MEDS: ASPIRIN PO SCH (09:02)
[2016-06-21] MEDS: TOPROL XL PO SCH (09:02)
[2016-06-21] MEDS: LOVENOX SUB-Q SCH (09:04)
[2016-06-21] MEDS: NORVASC PO SCH (09:04)
--- NOTE | 2016-06-21 12:12 | Progress Note ---
Assessment and Plan 45 y.o. right handed female s/p left pontine infarct with ongoing right hemiparesis and gait dysfunction - s/p CVA- ASA, statin - gait dysfunction secondary to CVA, right foot drop- custom AFO ordered on today - HTN- improved control since admission; continue to follow - DVT px- lovenox - Patient Problems (1) Left pontine cerebrovascular accident Current Visit: Yes Status: Acute (2) Hemiparesis affecting right side as late effect of cerebrovascular accident Current Visit: Yes Status: Acute (3) Abnormality of gait following cerebrovascular accident (CVA) Current Visit: Yes Status: Acute (4) Right foot drop Current Visit: Yes Status: Acute (5) HTN (hypertension) Current Visit: Yes Status: Chronic Qualifiers: Hypertension type: essential hypertension Qualified Code(s): I10 - Essential (primary) hypertension Subjective Date of service: 06/21/16 Principal diagnosis: left pontine infarct Interval history: Pt seen in this AM, F/U IPR course, s/p left pontine infarct. No acute issues overnight Objective - Constitutional Vitals: Vital Signs - 12hr 06/21/16 06/21/16 07:15 09:02 Temperature 98.1 F Pulse Rate 58 L Pulse Rate [ 58 L Left Brachial] Respiratory 20 Rate Blood Pressure 130/73 Blood Pressure 130/73 [Left Arm] O2 Sat by Pulse 95 Oximetry General appearance: Present: no acute distress - EENT Eyes: EOM intact ENT: hearing intact - Neck Neck: supple, normal ROM - Respiratory Respiratory effort: normal Extremities: No edema - Gastrointestinal General gastrointestinal: Present: soft, non-tender - Integumentary Integumentary: clear - Musculoskeletal Musculoskeletal: right sided weakness - Neurologic Neurologic: CNII-XII intact - Psychiatric Psychiatric: appropriate mood/affect, cooperative - Allied health notes Allied health notes reviewed: nursing (Supervision with ADLs this AM) - Labs CBC & Chem 7: 06/16/16 04:29 06/16/16 04:29
[2016-06-21] MEDS: ZOCOR PO SCH (20:57)
[2016-06-22 08:08] VITALS: BP 151/85
--- NOTE | 2016-06-22 08:38 | Discharge Summary ---
Providers - Providers Date of Admission: 06/15/16 14:31 Date of discharge: 06/22/16 Attending physician: JENNY CORLEY 06/15/16 14:57 Occupational Therapy Evaluate and Treat [CONS] Routine Comment: Reason For Exam: s/p CVA Physical Therapy Evaluation and Treat [CONS] Routine Comment: Reason For Exam: s/p CVA Speech Therapy Evaluation and Treat [CONS] Routine Reason For Exam: s/p CVA Primary care physician: Dr. London Hall Hospitalization Reason for admission: left pontine CVA Condition: Stable Hospital course: 45 y.o. right handed female admitted with acute onset of right sided weakness and dysarthria; BP 208/93 in the ED. Work-up revealed acute-subacute infarct in the left rohit; less than 50% reduction in internal carotid arteries bilaterally. Pt continued with right sided weakness and dysarthria; decline in functional independence noted on therapy evaluations; uncontrolled blood pressure (BP ranging 135-205/67-101). Once stable, pt was admitted for aggressive therapies and ongoing medical management. Pt tolerated IRU course without difficulty; BP controlled has improved. Functionally, pt has shown good progress. On admission, pt required s/u to Sal[facility] for ADLs, modA for bed mobility, Salty/CGA for transfers and gait, ambulating 90 feet with small based quad cane. At the time of discharge, pt has improved to Danielle to supervision with ADLs, supervision for transfers, close supervision for gait, ambulating 340 feet with SBQC and right AFO. Order has been placed for AFO. Family training has been completed with family and pt is stable for d/c home on today. Disposition: DISCHARGED TO HOME OR SELFCARE - Discharge Diagnoses (1) Left pontine cerebrovascular accident Status: Acute (2) Hemiparesis affecting right side as late effect of cerebrovascular accident Status: Acute (3) Abnormality of gait following cerebrovascular accident (CVA) Status: Acute (4) Right foot drop Status: Acute (5) HTN (hypertension) Status: Chronic Qualifiers: Hypertension type: essential hypertension Qualified Code(s): I10 - Essential (primary) hypertension Core Measure Documentation - Palliative Care Palliative Care/ Comfort Measures: Not Applicable - Core Measures Any of the following diagnoses?: stroke - Stroke Discharge Requirements Statin for LDL = or >70 mg/dl on DC: Yes Anticoag for atrial fib/atrial flutter: Not Applicable Antithrombotic for ischemic stroke: Yes Exam - Constitutional Vitals: Temp Pulse Resp BP Pulse Ox 98 F 57 L 20 151/85 97 06/22/16 08:00 06/22/16 08:00 06/22/16 08:00 06/22/16 08:00 06/22/16 08:00 General appearance: Present: no acute distress - EENT Eyes: Present: EOM intact ENT: hearing intact - Neck Neck: Present: supple, normal ROM - Respiratory Respiratory effort: normal - Extremities Extremities: No edema - Abdominal General gastrointestinal: Present: soft, non-tender, non-distended - Integumentary Integumentary: Present: clear - Musculoskeletal Musculoskeletal: right sided weakness - Psychiatric Psychiatric: appropriate mood/affect, cooperative - Neurologic Neurologic: CNII-XII intact Plan Activity: no driving until cleared by PCP, fall precautions Weight Bearing Status: Weight Bear as Tolerated Diet: low cholesterol, low salt Special Instructions: physical therapy, occupational therapy, other ([employer]; outpt therapies at [facility]) Durable Medical Equipment Needed Upon Discharge: Cane (small based quad cane), Wheelchair, Bedside Commode, other ([facility]) Additional Instructions: Dr. Champ Nobles, Neurology in 1-2 weeks Follow up with: PRIMARY CARE, [Primary Care Provider] - 7 Days Prescriptions: Simvastatin [Zocor TAB] 20 mg PO QHS #30 tablet amLODIPine [Norvasc] 10 mg PO DAILY #30 tab Aspirin [Aspirin TAB] 325 mg PO QDAY #30 tablet Metoprolol Xl [Metoprolol SUCCINATE ER TAB] 75 mg PO QDAY #45 tablet
[2016-06-22] MEDS: LOVENOX SUB-Q SCH (10:23)
[2016-06-22] MEDS: NORVASC PO SCH (10:23)
[2016-06-22] MEDS: ASPIRIN PO SCH (10:24)
[2016-06-22] MEDS: TOPROL XL PO SCH (10:24)
== END 2016-06-22 13:25 | disposition home or self-care (01) | DRG 65 ==
LOC: 3B 14:31
PROVIDERS: ADMIT Family Medicine; ATTEND Family Medicine
DX: I63.9 Cerebral infarction, unspecified (principal); G81.91 Hemiplegia, unspecified affecting right dominant side; I10 Essential (primary) hypertension; R47.1 Dysarthria and anarthria; R26.9 Unspecified abnormalities of gait and mobility; M21.371 Foot drop, right foot; I65.23 Occlusion and stenosis of bilateral carotid arteries; Z98.890 Other specified postprocedural states; Z83.3 Family history of diabetes mellitus; Z82.49 Family history of ischemic heart disease and other diseases of the circulatory system; Z79.82 Long term (current) use of aspirin; Z79.899 Other long term (current) drug therapy
CPT/HCPCS: 36415; 80053; 82962; 85025; J1650